=== PATIENT | male | born 1960 | race Caucasian/White ===

== ENCOUNTER 2018-09-21 10:14 | Observation (INO) | payer OTHER ==
--- NOTE | 2018-09-21 10:28 | EDPHY ---
HPI/HX/ROS/PE/MDM Narrative: CHIEF COMPLAINT: Angioedema HPI: This patient is a 57 year old male with history of hypertension and hypothyroidism. 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 He denies any other symptoms: no rashes, difficulty breathing, nausea, or other systemic symptoms. He has been taking Lisinopril for the past year and has never had similar symptoms. He initially went to [facility] urgent care where he received 75mg PO Benadryl and 60mg PO prednisone. This did not relieve his symptoms and he presents for further management. He feels he can breathe well currently, but is concerned regarding progression to his airway. He denies any other history of allergies. REVIEW OF SYSTEMS: A comprehensive 10 system review of systems is otherwise negative aside from elements mentioned in the history of present illness and medical decision making. PMH: Hypertension, hypothyroid. BPH. 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 PCP Dr. Donaldson. PHYSICAL EXAM: General:Patient is alert, in no acute distress. ENT:Eyes are normal to inspection. Severe diffuse tongue swelling noted. I am unable to see his oropharynx. Muffled voice with mild drooling. Neck: Normal inspection. Full range of motion. Respiratory:No respiratory distress, no stridor. Breath sounds normal bilaterally. Cardiovascular: Regular rate and rhythm. Strong peripheral pulses. Normal cap refill. Abdomen:The abdomen is nontender to palpation. There are no peritoneal signs. There are normal bowel sounds. Back: Normal to inspection. No tenderness to palpation. Skin: Normal color. No rash. Warm and dry. Extremities: Normal appearance. Full range of motion. Neuro: Oriented x3. Normal motor function. Normal sensory function. ED Course: 57 y/o male presents with acute onset angioedema swelling beginning this morning. He received 75mg PO Benadryl and 60mg PO prednisone prior to arrival. Plan to administer 50mg IV Zantac for symptom relief. Discussed likelihood of admission given the severity of swelling to monitor airway involvement. Plan to consult with ENT. Concern for severe angioedema secondary to ROME inhibitors. 10:[address] Ibrahim, ENT specialist. She will come evaluate the patient as soon as she is out of surgery this morning. 10:47 Patient complains of worsening swelling and, drooling. He feels it is difficult to swallow now. He is still breathing well and denies any difficulty with deep inspiration. The patient's exam is largely unchanged, I do not note worsening swelling or airway involvement at this time. Discussed further treatments including nasal trumpet, intubation. 10:[address] Mcduffie, hospitalist. He accepts admission to ICU. 10:[address] Marques, anesthesiologist. He is aware of the patient should the patient require acute airway management during admission. 12:36 Dr. Ibrahim has evaluated the patient and performed laryngoscopy at bedside. No airway swelling at this time. She reports patient feels somewhat better at this time. Plan to proceed with ICU admission as planned. I spent a total of 140 minutes of critical care time in obtaining history, performing a physical exam, bedside monitoring of interventions, collecting and interpreting tests and discussion with consultants but not including time spent performing procedures. MDM: This patient presents with severe angioedema involving his tongue. During his ED stay he did not decompensate from an airway perspective, but his tongue swelling was so severe that I consulted anesthesia and ENT to have them on standby should his condition deteriorate, as he is very close to needing intubation or emergency airway. Given tenuousness of condition, he will require close observation in the ICU. - Data Points Laboratory Results: Laboratory Results 09/21/18 10:28 09/21/18 10:28 Sodium 139 mEq/L mEq/L (135-145) Potassium 4.2 mEq/L mEq/L (3.5-5.2) Chloride 104 mEq/L mEq/L (97-110) Carbon Dioxide 23 mEq/l mEq/l (22-31) Anion Gap 12 mEq/L mEq/L (6-14) BUN 17 mg/dL mg/dL (7-23) Creatinine 1.0 mg/dL mg/dL (0.7-1.3) Estimated GFR > 60 Glucose 162 mg/dL H mg/dL (70-100) Calcium 10.1 mg/dL mg/dL (8.5-10.4) Medications Given: Methylprednisolone Sodium Succinate (Solu-Medrol) 40 mg IVP Q6HRS RAYSA Stop: 03/20/19 11:59 Last Admin: 09/21/18 13:34 Dose: 40 mg Discontinued Medications Ranitidine HCl (Zantac) 50 mg IVP EDNOW ONE Stop: 09/21/18 10:32 Last Admin: 09/21/18 10:38 Dose: 50 mg General Time Seen by Provider: 09/21/18 10:21 Initial Vital Signs: Initial Vital Signs Heart Rate 103 H 09/21/18 10:46 Respiratory Rate 16 09/21/18 10:46 Blood Pressure 140/90 H 09/21/18 10:46 O2 Sat (%) 94 09/21/18 10:46 O2 Delivery Mode Room Air Allergies/Adverse Reactions: lisinopril Allergy (Verified 09/21/18 13:36) Home Medications: Medication Instructions Recorded Atorvastatin Calcium [Lipitor 10 10 mg PO DAILY06 05/05/12 mg (RX)] Aspirin [Aspirin 81mg (*)] 81 mg PO DAILY06 09/21/18 Cholecalciferol Vit D3 [Vitamin D3 2,000 units PO DAILY06 09/21/18 2000 units tab (OTC)] Lisinopril [Zestril 2.5 mg (*)] 2.5 mg PO DAILY06 09/21/18 Loratadine 10 mg PO DAILY06 09/21/18 Multivitamins [Multivitamin (*)] 1 each PO DAILY06 09/21/18 Multivitamins [Multivitamin (*)] 1 each PO DAILY06 09/21/18 Olopatadine HCl [Pazeo] 1 drop OP DAILY06 09/21/18 [place]-3 Fatty Acids [Fish Oil 1000 2,000 mg PO DAILY06 09/21/18 mg (*)] Departure - Departure Disposition: [facility] Clinical Impression: Angioedema due to angiotensin converting enzyme inhibitor (ROME-I) Condition: Serious Report Scribed for: Aniceto Gonzalez Report Scribed by: Lexus Rebolledo Date of Report: 09/21/18 Time of Report: 10:31 Physician Review and Approval Statement: Portions of this note were transcribed by an ED scribe. I personally performed the history, physical exam, and medical decision making; and confirm the accuracy of the information in the transcribed note.
[2018-09-21] MEDS ORDERED: RANITIDINE 50 MG/2 ML VIAL IVP ONE (10:31)
[2018-09-21] MEDS ORDERED: ACETAMINOPHEN 325 MG TAB PO PRN (11:10)
[2018-09-21] MEDS ORDERED: ONDANSETRON DISINTEGRATING 4 MG TAB PO PRN (11:10)
[2018-09-21] MEDS ORDERED: LORazepam 2 MG/ML INJ IVP PRN (11:10)
[2018-09-21] MEDS ORDERED: ONDANSETRON 4 MG/2 ML VIAL IVP PRN (11:10)
[2018-09-21] MEDS ORDERED: NS 1,000 ML IV SCH (11:15)
--- NOTE | 2018-09-21 11:40 | GHP ---
[f rep st] HISTORY AND PHYSICAL DATE OF ADMISSION: 09/21/2018 CHIEF COMPLAINT: The patient is a pleasant 57-year-old gentleman with a history of hypertension and diabetes, fatty liver, who presents with tongue swelling. He was started on ROME inhibitor about a ye ar ago. He has taken it faithfully. 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 He now has tongue swelling and some neck swelling. He is not stridorous. He is not having any difficulty breathing, but he does have some difficulty swallowing. He is unable to describe any allergic exposure that he had this morning. He has some allergies to pets. REVIEW OF SYSTEMS: Complete 10-point review of systems conducted and negative except as noted in the HPI. PAST MEDICAL HISTORY: Hypertension, diabetes with A1c of 6.4, fatty liver, BPH, hypothyroidism, hype rlipidemia. ALLERGIES: ROME inhibitors. MEDICATIONS: Lisinopril. An older list includes atorvastatin, levothyroxine, tamsulosin. SOCIAL HISTORY: No tobacco, no alcohol. 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 FAMILY HISTORY: Reviewed and unremarkable. PHYSICAL EXAM: Blood pressure 140/90, pulse 103, breathing 16 times a minute, 94% on room air. GENE RAL: No acute distress. SCLERAE: Anicteric. TONGUE: Large. Is probably an inch thick. He has a difficult time speaking, although, he is still able to articulate. There is no stridor. There is n o respiratory distress. NECK: Somewhat swollen and slightly tender. HEART: S1, S2. Not tachycard ic. ABDOMEN: Soft, nontender, nondistended. LOWER EXTREMITIES: Without edema. Calves nontender. SKIN: Without rash. NEUROLOGIC: Exam is nonfocal. LABS: Pending. I discussed the case with Dr. Aniceto Gonzalez. ASSESSMENT: A 57-year-old gentle with angioedema from ROME inhibitor. PLAN: 1. Angioedema. This is obviously going to be held and listed as a drug allergy. Additionally, we w ill start him on IV Benadryl, IV H2 johnny, and IV steroids. He will be seen by ENT and Anesthesiol tyler for airway issues. 2. Question airway issues. He does not currently have stridor or evidence of airway compromise. Wi ll allow ENT and Anesthesia to see him. We will follow him in the ICU. 3. Hypertension. We will follow his blood pressure while here. 4. Diabetes. Hemoglobin A1c is 6.4. We will not follow blood sugars while here. 5. Diet. N.p.o. DISPOSITION: Observation status ICU. /[id number]/MODL
--- NOTE | 2018-09-21 13:20 | GCON ---
[f rep st] CONSULTATION CONSULTATION NOTE. DATE OF CONSULTATION: 09/21/2018 CHIEF COMPLAINT: Tongue swelling. HISTORY OF PRESENT ILLNESS: This is a pleasant 57-year-old man who has a history of high blood pressure, as well as diabetes, who presented to the [facility] with some tongue swelling. He has been on an ROME inhibitor for about a year, and he has taken it safely every day. This morning, he was at work and developed some tongue swelling that seemed progressive, and so he went to Urgent Care. He was given prednisone, as well as Benadryl at the Urgent Care, and it was not improving, and so he was transferred to the ER. He states that just in the past 10 minutes he might have a little bit of improvement in the tongue swelling. He denies any dysphagia or significant shortness of breath, although he did have dysphagia at the Urgent Care. He does feel like his neck is slightly swollen, but it has not gotten worse. He has no stridor. He denies any significant allergies prior to this situation. He does have some allergies to animals. REVIEW OF SYSTEMS: Were done and negative for the above. PAST MEDICAL HISTORY: Hypertension, diabetes, fatty liver, BPH, hypothyroidism and hyperlipidemia. ALLERGIES: ROME inhibitors. MEDICATIONS: See list. SOCIAL HISTORY: Nonsmoker. PHYSICAL EXAMINATION: GENERAL: He is awake, alert, in no apparent distress. He does have some mild dysarthria secondary to the enlarged tongue. HEENT: He has no significant swelling of the lips. Ears show no effusions bilaterally. Nose is clear. Oral cavity and oropharynx show a fairly large tongue, but it is mobile and midline. I am not able to see the posterior oropharyngeal wall, but I can see the very back part of the soft palate. The floor of his mouth is slightly swollen, but not firm. NECK: Exam of the neck shows slight indurated feeling in the submandibular regions, but otherwise there are no masses or lesions. 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 Procedure: After verbal informed consent was obtained, I sprayed a little bit of 4% lidocaine, as well as Afrin in the bilateral nares, and once this had sufficient time to act, a flexible fiberoptic laryngoscopy was performed. The right nasal cavity and nasopharynx were clear. Oropharynx shows an enlarged tongue base that faces the vallecula, but the epiglottis, as well as the arytenoids and bilateral vocal cords look fairly normal without a significant amount of edema. Bilateral vocal cords are mobile. There is no pooling of secretions. No other significant pathology. The scope was removed, and he tolerated this well. ASSESSMENT AND PLAN: This is a 57-year-old man with angioedema from what sounds like an ROME inhibitor usage. He does not have any significant laryngeal edema, and he is breathing okay right now. He has been given Benadryl, prednisone, as well as Zantac. He feels like he might be getting slightly better. He is going to be admitted to the ICU by the hospitalist team for evaluation and monitoring overnight. He was given signs and symptoms to watch for and they can give me a call if he feels like he gets worse in any way. Otherwise, at this point, I think he is stable and does not need any other airway management. Please call if you need anything else. Thanks for the consultation. /[id number]/MODL MTDD
[2018-09-21] MEDS ORDERED: methylPREDNISolone SOD SUCC 40 MG/ML VIAL ONE (13:32)
[2018-09-21] MEDS: methylPREDNISolone SOD SUCC 40 MG/ML VIAL IVP SCH ×2 (13:34→18:21)
--- NOTE | 2018-09-21 14:13 | HOSPPROG ---
Hospitalist Progress Note Assessment/Plan: patient seen at 12:30, discussed w dr martínez tongue slightly better 60 minutes crit care Objective: Vital Signs Temp Pulse Resp BP Pulse Ox 37.1 C 103 H 18 115/78 92 09/21/18 13:51 09/21/18 13:51 09/21/18 13:51 09/21/18 13:51 09/21/18 13:51 ICD10 Worksheet Patient Problems: Problems Problem Status Onset Angioedema due to angiotensin converting enzyme inhibitor (ROME-I) Acute
[2018-09-21] MEDS ORDERED: FAMOTIDINE 20 MG/NACL 50 ML IV SCH (21:00)
[2018-09-21] MEDS ORDERED: FAMOTIDINE 20 MG TAB PO SCH (21:45)
[2018-09-22] MEDS: methylPREDNISolone SOD SUCC 40 MG/ML VIAL IVP SCH ×2 (00:32→06:40)
--- NOTE | 2018-09-22 08:43 | HOSPPROG ---
Hospitalist Progress Note Assessment/Plan: 57 yo M w angioedema, now resolved home today see dc summary Subjective: tongue improved Objective: Vital Signs Temp Pulse Resp BP Pulse Ox 36.6 C 92 13 119/74 97 09/22/18 04:00 09/22/18 04:00 09/22/18 04:00 09/22/18 04:00 09/22/18 04:00 09/21/18 09/22/18 09/23/18 05:59 05:59 05:59 Intake Total 1300 Balance 1300 - Physical Exam Constitutional: no apparent distress, appears nourished Eyes: PERRL, anicteric sclera Ears, Nose, Mouth, Throat: moist mucous membranes, hearing normal, other ( tongue normalized) Cardiovascular: regular rate and rhythym, no murmur, rub, or gallop Respiratory: no respiratory distress, no rales or rhonchi Gastrointestinal: normoactive bowel sounds, soft, non-tender abdomen Genitourinary: No villa in urethra Skin: warm, normal color Musculoskeletal: full muscle strength, no muscle tenderness Neurologic: AAOx3, sensation intact bilaterally ICD10 Worksheet Patient Problems: Problems Problem Status Onset Angioedema due to angiotensin converting enzyme inhibitor (ROME-I) Acute
--- NOTE | 2018-09-22 08:58 | GDS ---
[f rep st] DISCHARGE SUMMARY DISCHARGE DIAGNOSES: 1. Angioedema, presumably secondary to ROME inhibitor therapy. 2. Hypertension. 3. Metabolic syndrome. 4. Diabetes. Please see admission history and physical by Dr. Jordan Mcduffie. The patient presented with sudden-o nset tongue swelling. He had been on ROME inhibitor for about a year at a low dose 2.5 mg. He was se en by ENT who performed a bedside laryngoscopy revealing an edematous tongue but actually relatively clear airway. He received steroids, H2 johnny and Benadryl overnight. There were no untoward side effects. His symptoms resolved and he is discharged home today with discontinuation his ROME inhibito r. He will follow up with his primary care physician for resumption of an antihypertensive. /[id number]/MODL
[2018-09-22 09:10] VITALS: BP 120/86
== END 2018-09-22 09:47 | disposition home or self-care (01) ==
LOC: F2N 13:42
PROVIDERS: ADMIT Internal Medicine; ATTEND Internal Medicine
PROC: 0CJS8ZZ Inspection of Larynx, Via Natural or Artificial Opening Endoscopic (ICD-10-PCS; principal; 2018-09-21)
DX: T78.3XXA Angioneurotic edema, initial encounter (principal); I10 Essential (primary) hypertension; E88.81 Metabolic syndrome and other insulin resistance; E11.9 Type 2 diabetes mellitus without complications
CPT/HCPCS: 31575; 96374; 96375; 96376; 99291; 99292; G0378; J1200; J2780; J2920

== ENCOUNTER 2018-12-10 14:26 | Emergency (ER) | payer OTHER ==
--- NOTE | 2018-12-10 14:37 | EDPHY ---
H & P Stated Complaint: swollen tongue - Personal History Current Tetanus/Diphtheria Vaccine: Yes - Medical/Surgical History Hx Asthma: No Hx Chronic Respiratory Disease: No Hx Diabetes: No Hx Cardiac Disease: No Hx Renal Disease: No Hx Cirrhosis: No Hx Alcoholism: No Hx HIV/AIDS: No Hx Splenectomy or Spleen Trauma: No Other PMH: HTN, hypothyroid, HLD. - Social History Smoking Status: Never smoked Time Seen by Provider: 12/10/18 14:36 Constitutional: Initial Vital Signs Temperature (C) 36.8 C 12/10/18 14:28 Heart Rate 92 12/10/18 14:28 Respiratory Rate 16 12/10/18 14:28 Blood Pressure 160/90 H 12/10/18 14:28 O2 Sat (%) 96 12/10/18 14:28 O2 Delivery Mode Room Air Allergies/Adverse Reactions: No Known Allergies Allergy (Unverified 12/10/18 14:30) Home Medications: Medication Instructions Recorded Atorvastatin Calcium [Lipitor 10 10 mg PO DAILY06 05/05/12 mg (*)] Aspirin [Aspirin 81mg (*)] 81 mg PO DAILY06 09/21/18 Cholecalciferol Vit D3 [Vitamin D3 2,000 units PO DAILY06 09/21/18 2000 units tab (OTC)] Loratadine 10 mg PO DAILY06 09/21/18 Multivitamins [Multivitamin (*)] 1 each PO DAILY06 09/21/18 Multivitamins [Multivitamin (*)] 1 each PO DAILY06 09/21/18 Olopatadine HCl [Pazeo] 1 drop OP DAILY06 09/21/18 [place]-3 Fatty Acids [Fish Oil 1000 2,000 mg PO DAILY06 09/21/18 mg (*)] Ranitidine HCl [Zantac 75] 150 mg PO DAILY #14 tablet 12/10/18 predniSONE 40 mg PO DAILY #10 tab 12/10/18 Medical Decision Making ED Course/Re-evaluation: CHIEF COMPLAINT: Swollen tongue HISTORY OF PRESENT ILLNESS: The patient is a 58 y/o male with a history angioedema due to lisinopril complaining of a left-sided swollen tongue onset at 12:15, 1.5 hours ago. In September, the patient was admitted for right-sided angioedema after taking Lisinopril. After this admission he stopped taking Lisinopril. Today while chewing gum he developed the right-sided angioedema. After his symptoms started he went to go eat [employer], but noted that the swelling was not improving and he was slurring his words. Due to these symptoms he decided to present to the emergency department. He does have an appointment with Dr. Baker, fairing man at [facility], next week. Due to this appointment he is not taking any steroids right now. He denies any known allergies. No fever, headache, body aches, lightheadedness, chest pain, heart palpitations, shortness of breath, cough, abdominal pain, urinary or bowel complaints, numbness, paresthesias. REVIEW OF SYSTEMS: A comprehensive 10 system review of systems is otherwise negative aside from elements mentioned in the history of present illness and medical decision making. PHYSICAL EXAM: HR, BP, O2 Sat, RR. Temp noted General Appearance: Alert, well hydrated, appropriate, and non-toxic appearing. Head: Atraumatic without scalp tenderness or obvious injury Eyes: Pupils equal, round, reactive to light and accommodation, EOMI, no trauma , no injection. Ears: Clear bilaterally, no perforation, normal landmarks Nose: Atraumatic, no rhinorrhea, clear. Throat: Left-sided angioedema. Normal uvula and lips. There is no erythema or exudates, no lesions, normal tonsils, mucus membranes moist. Neck: Supple, 2+ carotid upstroke, nontender, no lymphadenopathy. Respiratory: No retractions, no distress, no wheezes, and no accessory muscle use. Lungs are clear to auscultation bilaterally. Cardiovascular: Regular rate and rhythm, no murmurs, rubs, or gallops. Bilateral carotid, radial, dorsalis pedis, and posterior tibial pulses intact. Good capillary refill all extremities. Gastrointestinal: Abdomen is soft, nontender, non-distended, no masses, no rebound, no guarding, no peritoneal signs. Musculoskeletal: Normal active ROM of all extremities, atraumatic. Neurological: Alert, appropriate, and interactive. The patient has normal DTRs and non-focal cranial nerves, motor, sensory, and cerebellar exam. Skin: No rashes, good turgor, no nodules on palpation. Past medical history: Angioedema after lisinopril, hypertension, hypothyroid, hyperlipidemia Past surgical history: Denies Family history: Denies Social history: Lives in [place], employed, DIAGNOSTICS/PROCEDURES/CRITICAL CARE TIME: Not indicated. DIFFERENTIAL DIAGNOSIS: The differential diagnosis included but was not limited to angioedema, anaphylaxis, anaphylactoid reaction, urticarial reaction, and other infectious causes for skin rash. MEDICAL DECISION MAKING: The patient is a 58 y/o male with a history angioedema due to lisinopril presenting with a left-sided swollen tongue onset at 12:15, 1.5 hours ago. In September, the patient was admitted for right-sided angioedema after taking Lisinopril. After this admission he stopped taking Lisinopril. Today while chewing gum he developed the right-sided angioedema. He does have an appointment with Dr. Baker, fairing man at [facility], next week and is not taking any steroids because of this. On exam he has left-sided angioedema with a normal uvula and lips. 50mg IV Zantac, 50mg IV Benadryl, 0.3mg IV Epinephrine, and 125mg IV Solu-Medrol administered. I have advised that if his symptoms are improved after medication then he can be sent home with follow up, if his symptoms do not improve then he will need to be admitted. I have also advised him to keep his appointment with the fairing man next week even though I gave him a steroid. I have also prescribed him Zantac and Prednisone for his symptoms. 1500: Patient care turned over to Dr. Robertson at shift change. We are still observing this patient after medication. (Darrin Jo) 3:00 p.m.-I assumed care of this patient at shift change. 4:30 p.m.-tongue swelling is starting to subside. Will continue to observe. On discharge, patient feels much better. Tongue swelling resolving, still has slight swelling. Wants to go home. Warning signs discussed. (Adenike Robertson) Differential Diagnosis: Differential diagnosis includes though it is not limited to laryngeal edema, bronchospasm, hypotension, angioedema. (Adenike Robertson) - Data Points Medications Given: Discontinued Medications Diphenhydramine HCl (Benadryl Injection) 50 mg IVP EDNOW ONE Stop: 12/10/18 14:45 Last Admin: 12/10/18 15:01 Dose: 50 mg Epinephrine HCl (Epinephrine) 0.3 mg IM EDNOW ONE Stop: 12/10/18 14:45 Last Admin: 12/10/18 15:06 Dose: 0.3 mg Methylprednisolone Sodium Succinate (Solu-Medrol) 125 mg IVP EDNOW ONE Stop: 12/10/18 14:45 Last Admin: 12/10/18 15:06 Dose: 125 mg Ranitidine HCl (Zantac) 50 mg IVP EDNOW ONE Stop: 12/10/18 14:45 Last Admin: 12/10/18 15:02 Dose: 50 mg Departure - Departure Disposition: Home, Routine, Self-Care Clinical Impression: Angioedema Condition: Good Instructions: Angioedema (ED) Additional Instructions: 1. Follow-up with your primary doctor within 72 hours. 2. Use [id number] Benadryl 1 tablet 3 times daily until swelling resolves. 3. Return to the Emergency Department for shortness of breath, difficulty swallowing, difficulty breathing, worsening of rash, fever or other worsening of condition. 3. Call Dr. Baker' office on Wednesday. You will need to reschedule your allergy testing. 4. Take Prednisone and Zantac as prescribed. Referrals: Myrna Baker MD [[facility] Primary Care Provider] - As per Instructions Prescriptions: predniSONE 40 mg PO DAILY #10 tab Ranitidine HCl [Zantac 75] 150 mg PO DAILY #14 tablet Report Scribed for: Darrin Jo Report Scribed by: Amanda Martinez Date of Report: 12/10/18 Time of Report: 14:37
[2018-12-10] MEDS ORDERED: RANITIDINE 50 MG/2 ML VIAL IVP ONE (14:44)
[2018-12-10] MEDS ORDERED: EPINEPHrine 1 MG/ML INJ IM ONE (14:44)
[2018-12-10] MEDS ORDERED: methylPREDNISolone SOD SUCC 125 MG/2 ML VIAL IVP ONE (14:44)
[2018-12-10 19:00] VITALS: BP 145/84
== END 2018-12-10 18:58 | disposition home or self-care (01) ==
DX: T78.3XXA Angioneurotic edema, initial encounter (principal); I10 Essential (primary) hypertension; E78.5 Hyperlipidemia, unspecified; E03.9 Hypothyroidism, unspecified
CPT/HCPCS: 96374; J0171; J1200; J2780; J2930

== ENCOUNTER 2018-12-30 07:45 | Emergency (ER) | payer OTHER ==
[2018-12-30] MEDS ORDERED: EPINEPHrine 1 MG/ML INJ IM ONE (08:14)
[2018-12-30] MEDS ORDERED: RANITIDINE 50 MG/2 ML VIAL IVP ONE (08:14)
[2018-12-30] MEDS ORDERED: methylPREDNISolone SOD SUCC 125 MG/2 ML VIAL IVP ONE (08:14)
--- NOTE | 2018-12-30 08:18 | EDPHY ---
H & P Stated Complaint: right side of tongue swollen Time Seen by Provider: 12/30/18 08:03 HPI/ROS: CHIEF COMPLAINT: Angioedema HISTORY OF PRESENT ILLNESS: The patient is a 58-year-old man who was here for the 3rd time this year with angioedema of his tongue. Primarily the right side of his tongue. During the initial visit he was on lisinopril and this was discontinued. He followed up with Dr. Myrna Baker who sent blood work to [facility]. His C1 inhibitor levels are low. He then returned a few weeks ago with no obvious source for his angioedema but he responded well to epinephrine, Benadryl steroids and Zantac. He has not taken bradykinin antagonists. Today his symptoms began about 30 min ago. Primarily the right side of his tongue. Does not involve his lips or pharynx. No wheezing or shortness of breath. No chest pain. Severity: Moderate Modifying factors: None REVIEW OF SYSTEMS: Constitutional: denies: chills, fever, recent illness, recent injury EENTM: See HPI Respiratory: denies: cough, shortness of breath Cardiac: denies: chest pain, irregular heart rate, lightheadedness, palpitations Gastrointestinal/Abdominal: denies: abdominal pain, diarrhea, nausea, vomiting, blood streaked stools Genitourinary: denies: dysuria, frequency, hematuria, pain Musculoskeletal: denies: joint pain, muscle pain Skin: denies: lesions, rash, jaundice, bruising Neurological: denies: headache, numbness, paresthesia, tingling, dizziness, weakness Hematologic/Lymphatic: denies: blood clots, easy bleeding, easy bruising Immunologic/allergic: denies: HIV/AIDS, transplant 10 systems reviewed and negative except as noted EXAM: GENERAL: Well-appearing, well-nourished and in no acute distress. HEAD: Atraumatic, normocephalic. EYES: Pupils equal round and reactive to light, extraocular movements intact, sclera anicteric, conjunctiva are normal. ENT: Right half of tongue edematous TMs normal, nares patent, Moist mucous membranes. NECK: Normal range of motion, supple without lymphadenopathy or JVD. LUNGS: Breath sounds clear to auscultation bilaterally and equal. No wheezes rales or rhonchi. HEART: Regular rate and rhythm without murmurs, rubs or gallops. ABDOMEN: Soft, nontender, normoactive bowel sounds. No guarding, no rebound. No masses appreciated. BACK: No CVA tenderness, no spinal tenderness, step-offs or deformities EXTREMITIES: Normal range of motion, no pitting or edema. No clubbing or cyanosis. NEUROLOGICAL: Cranial nerves II through XII grossly intact. Normal speech, normal gait. 5/5 strength, normal movement in all extremities, normal sensation , normal reflexes PSYCH: Normal mood, normal affect. SKIN: Warm, dry, normal turgor, no visible rashes or lesions. Source: Patient Exam Limitations: No limitations - Personal History Current Tetanus/Diphtheria Vaccine: Yes Current Tetanus Diphtheria and Acellular Pertussis (TDAP): Yes - Medical/Surgical History Hx Asthma: No Hx Chronic Respiratory Disease: No Hx Diabetes: No Hx Cardiac Disease: No Hx Renal Disease: No Hx Cirrhosis: No Hx Alcoholism: No Hx HIV/AIDS: No Hx Splenectomy or Spleen Trauma: No Other PMH: HTN, hypothyroid, HLD. Angio edema - Family History Significant Family History: No pertinent family hx - Social History Smoking Status: Never smoked Alcohol Use: None Drug Use: None Constitutional: Initial Vital Signs Temperature (C) 35.9 C L 12/30/18 07:52 Heart Rate 77 12/30/18 07:52 Respiratory Rate 16 12/30/18 07:52 Blood Pressure 158/94 H 12/30/18 07:52 O2 Sat (%) 98 12/30/18 07:52 O2 Delivery Mode Room Air Allergies/Adverse Reactions: No Known Allergies Allergy (Unverified 12/10/18 14:30) Home Medications: Medication Instructions Recorded Atorvastatin Calcium [Lipitor 10 10 mg PO DAILY06 05/05/12 mg (*)] Aspirin [Aspirin 81mg (*)] 81 mg PO DAILY06 09/21/18 Cholecalciferol Vit D3 [Vitamin D3 2,000 units PO DAILY09/21/18 2000 units tab (OTC)] Loratadine 10 mg PO DAILY09/21/18 Multivitamins [Multivitamin (*)] 1 each PO DAILY09/21/18 Multivitamins [Multivitamin (*)] 1 each PO DAILY06 09/21/18 Olopatadine HCl [Pazeo] 1 drop OP DAILY09/21/18 [place]-3 Fatty Acids [Fish Oil 1000 2,000 mg PO DAILY06 09/21/18 mg (*)] Ranitidine HCl [Zantac 75] 150 mg PO DAILY #14 tablet 12/10/18 predniSONE 40 mg PO DAILY #10 tab 12/10/18 EPINEPHrine [Epipen 0.3 MG] 0.3 mg IM ONCE #2 syr 12/30/18 predniSONE 60 mg PO DAILY #9 tab 12/30/18 Medical Decision Making ED Course/Re-evaluation: 8:40 a.m. I did attempt several times to page Dr. Baker at the patient's request. Dr. Baker office is not open today and they are not taking call. 9:25 a.m. patient's symptoms have stabilized. He feels calm. Will continue to observe. 11:20 a.m. patient's symptoms have improved. He is eager to go home. Will give him new prescriptions although he states that he does not think he will need them because he does not think that this is histamine related. He will follow up with Dr. Baker for further testing. Discussed indications for returning here. 11:50 a.m. We did discuss possibly sending the blood that was drawn here in the ER for the tests that were supposed to be done today prior to him receiving steroids and antihistamines. We spoke with the medical office however and these labs need to be done on ice. The patient is no longer here in the department. Differential Diagnosis: Partial list of the Differential diagnosis considered include but were not limited to; angioedema, allergic reaction, hereditary angioedema, medication reaction and although unlikely based on the history and physical exam, I also considered infection, abscess, cancer. I discussed these differential diagnoses and the plan with the patient as well as the usual and expected course. The patient understands that the diagnosis is provisional and that in medicine we are not always correct and that further workup is often warranted. Usual and customary warnings were given. All of the patient's questions were answered. The patient was instructed to return to the emergency department should the symptoms at all worsen or return, otherwise to followup with the physician as we discussed. - Data Points Medications Given: Discontinued Medications Diphenhydramine HCl (Benadryl Injection) 50 mg IVP EDNOW ONE Stop: 12/30/18 08:15 Last Admin: 12/30/18 08:21 Dose: 50 mg Epinephrine HCl (Epinephrine) 0.3 mg IM EDNOW ONE Stop: 12/30/18 08:15 Last Admin: 12/30/18 08:25 Dose: 0.3 mg Methylprednisolone Sodium Succinate (Solu-Medrol) 125 mg IVP EDNOW ONE Stop: 12/30/18 08:15 Last Admin: 12/30/18 08:25 Dose: 125 mg Ranitidine HCl (Zantac) 50 mg IVP EDNOW ONE Stop: 12/30/18 08:15 Last Admin: 12/30/18 08:21 Dose: 50 mg Departure - Departure Disposition: Home, Routine, Self-Care Clinical Impression: Angioedema Qualifiers: Encounter type: initial encounter Qualified Code(s): T78.3XXA - Angioneurotic edema, initial encounter Condition: Fair Instructions: Angioedema (ED) Referrals: Dennis Donaldson MD [Primary Care Provider] - As per Instructions Myrna Baker MD [[facility] Primary Care Provider] - 2-3 days without fail Prescriptions: EPINEPHrine [Epipen 0.3 MG] 0.3 mg IM ONCE #2 syr predniSONE 60 mg PO DAILY #9 tab
[2018-12-30 13:47] VITALS: BP 140/79
== END 2018-12-30 12:20 | disposition home or self-care (01) ==
DX: T78.3XXA Angioneurotic edema, initial encounter (principal); I10 Essential (primary) hypertension; E03.9 Hypothyroidism, unspecified
CPT/HCPCS: 96374; J0171; J1200; J2780; J2930